=== PATIENT | female | born 1965 | race Caucasian/White ===

== ENCOUNTER 2018-09-09 14:23 | Emergency (ER) | payer MEDICAID ==
[~2018-09-09] VITALS: Ht 182.9 cm; Wt 68.0 kg
[2018-09-09 14:58] VITALS: BP_SYST 136
--- NOTE | 2018-09-09 15:40 | NUR ---
Patient to ER bed 7 to gown for evaluation. Side rails up. Report given to Nia CASH.
--- NOTE | 2018-09-09 15:45 | NUR ---
BRITTNEY Box DEPARTMENT STORE MANAGER at bedside examining patient.
[2018-09-09] MEDS ORDERED: KETOROLAC TROMETHAMINE 60 MG/2 ML VIAL IM ONE (16:00)
--- NOTE | 2018-09-09 16:00 | NUR ---
Patient presented to ER with c/o back pain and bilat arm numbness. Patient A&Ox4, afebrile, ambulatory to ER, pain 10/05, denies N/V/D. Patient states pain to back and bilat arms increased today 10/05, pain had been present intermittent x2 weeks. Patient denies other health ilnesses
--- NOTE | 2018-09-09 16:04 | NUR ---
BRITTNEY Box [employer] UNIT OPERATOR at bedside discussing treatment with patient.
--- NOTE | 2018-09-09 16:26 | NUR ---
Note emmie in EDM - 09/09/18 at 1638 by [email or web address] Patient presented to ER with c/o back pain and bilat arm numbness. Patient A&Ox4, afebrile, ambulatory to ER, pain 10/05, denies N/V/D. Patient states pain to back and bilat arms increased today 10/05, pain had been present intermittent x2 weeks. Patient denies other health ilnesses
--- NOTE | 2018-09-09 16:29 | NUR ---
during discharge instructions Patient request to speak to Morena Box NP. Made Morena Box NP aware.
[2018-09-09 16:30] VITALS: BP_SYST 136
--- NOTE | 2018-09-09 16:30 | NUR ---
Patient given written and verbal discharge instructions and verbalizes understanding. ER MD discussed with patient the results and treatment provided. Patient in stable condition. ID arm band removed. Rx of Tylenol, prednisone given. Patient educated on pain management and to follow up with PMD. Pain Scale5/10 tolerable for pt . Opportunity for questions provided and answered. Medication side effect fact sheet provided.
== END 2018-09-09 16:30 | disposition home or self-care (01) ==
LOC: SED 14:23
DX: S90.562A Insect bite (nonvenomous), left ankle, initial encounter (principal); R03.0 Elevated blood-pressure reading, without diagnosis of hypertension; Z85.41 Personal history of malignant neoplasm of cervix uteri; W57.XXXA Bitten or stung by nonvenomous insect and other nonvenomous arthropods, initial encounter; Y93.89 Activity, other specified; Y92.89 Other specified places as the place of occurrence of the external cause; Y99.8 Other external cause status
CPT/HCPCS: 96372; 99283; J1885

== ENCOUNTER 2018-12-11 18:45 | Emergency (ER) | payer MEDICAID ==
[~2018-12-11] VITALS: Ht 182.9 cm; Wt 70.3 kg
[2018-12-11 18:55] VITALS: BP_SYST 148
[2018-12-11 20:41] LABS: BILIRUBIN,URINE NEGATIVE (NEGATIVE); BLOOD, URINE TRACE (NEGATIVE); CLARITY/URINE CLEAR (CLEAR); COLOR,URINE YELLOW (YELLOW); GLUCOSE,URINE NEGATIVE (NEGATIVE); KETONES,URINE NEGATIVE (NEGATIVE); LEUKOCYTE ESTERASE ,URINE TRACE (NEGATIVE); NITRITE, URINE NEGATIVE (NEGATIVE); PROTEIN URINE NEGATIVE (NEGATIVE); UROBILINOGEN,URINE 0.2 (0.2-1.0)
[2018-12-11 20:49] LABS: BASOPHILS # (AUTO) 0.1 K/uL (0.0-0.2); EOSINOPHILS # (AUTO) 0.1 K/uL (0.0-0.4); EOSINOPHILS % (AUTO) 0.9 % (0.0-4.0); HEMATOCRIT 38.5 % (36-48); HEMOGLOBIN 13.2 g/dL (12.0-16.0); LYMPHOCYTES # (AUTO) 1.9 K/uL (1.0-5.5); LYMPHOCYTES % (AUTO) 27.3 % (20.5-51.5); MEAN CORPUSCULAR HEMOGLOBIN 32 pg (27-31); MEAN CORPUSCULAR HGB CONC 34 % (32-36); MEAN CORPUSCULAR VOLUME 92 fL (79.0-98.0); MONOCYTES # (AUTO) 0.8 K/uL (0.0-1.0); MONOCYTES % (AUTO) 10.7 % (1.7-9.3); NEUTROPHILS # (AUTO) 4.2 K/uL (1.8-7.7); NEUTROPHILS % (AUTO) 60.1 % (40.0-70.0); PLATELET COUNT (AUTO) 353 K/uL (130-430); WHITE BLOOD COUNT (AUTO) 7.1 K/uL (4.8-10.8)
[2018-12-11 20:51] LABS: BACTERIA,URINE MODERATE /HPF (None Seen)
[2018-12-11 21:00] LABS: ANION GAP 8 (5-15); CALCIUM 9.3 mg/dL (8.4-11.0); CHLORIDE 102 mmol/L (98-107); CREATININE 0.66 mg/dL (0.55-1.30); GLUCOSE 91 mg/dL (70-99); POTASSIUM 3.5 mmol/L (3.5-5.1); SODIUM SERUM 138 mmol/L (136-145); UREA NITROGEN, BLOOD 12 mg/dL (8-21)
[2018-12-11 21:02] LABS: GFR AFRICAN AMERICAN 120 mL/min (>90)
[2018-12-11 21:10] LABS: C-REACTIVE PROTEIN QUANT 0.9 mg/dL (0-0.5)
[2018-12-11 21:13] LABS: ALANINE AMINOTRANSFERASE 14 U/L (12-78); ALBUMIN 3.5 g/dL (3.4-4.8); ASPARTATE AMINOTRANSFERASE 11 U/L (10-37); TOTAL BILIRUBIN 0.3 mg/dL (0.0-1.0)
[2018-12-11 21:50] LABS: ERYTHROCYTE SEDIMENTATION RATE 29 MM/HR (0-20)
[2018-12-11] MEDS ORDERED: KETOROLAC TROMETHAMINE 30 MG VIAL IM ONE (23:00)
[2018-12-11] MEDS ORDERED: CEPHALEXIN 500 MG CAPSULE PO ONE (23:00)
[2018-12-11] MEDS ORDERED: AZITHROMYCIN 500 MG in NS 250 ML IV ONE (23:00)
[2018-12-11] MEDS ORDERED: cefTRIAXone 1 GM in D5W 50 ML IV ONE (23:00)
[2018-12-11] MEDS ORDERED: LORazepam 2 MG/ML VIAL IVP ONE (23:00)
[2018-12-11] MEDS ORDERED: KETOROLAC TROMETHAMINE 30 MG VIAL IVP ONE (23:00)
[2018-12-11] MEDS ORDERED: AZITHROMYCIN 500 MG/VIAL (ZITHROMAX) IV ONE (23:24)
[2018-12-11] MEDS ORDERED: cefTRIAXone 1 GM VIAL ONE (23:25)
[2018-12-12 02:00] VITALS: BP_SYST 148
== END 2018-12-12 02:00 | disposition home or self-care (01) ==
LOC: SED 18:45
DX: S16.1XXA Strain of muscle, fascia and tendon at neck level, initial encounter (principal); S39.012A Strain of muscle, fascia and tendon of lower back, initial encounter; J18.9 Pneumonia, unspecified organism; Z85.41 Personal history of malignant neoplasm of cervix uteri; X50.9XXA Other and unspecified overexertion or strenuous movements or postures, initial encounter; Y93.89 Activity, other specified; Y92.89 Other specified places as the place of occurrence of the external cause; Y99.8 Other external cause status
CPT/HCPCS: 36415; 70450; 71045; 80053; 81000; 81025; 82550; 84484; 85025; 85651; 86140; 86710; 87040; 87086; 93005; 96365; 96366; 96375; 99284; J0456; J0696; J1885; J2060

== ENCOUNTER 2019-01-23 15:12 | Emergency (ER) | payer MEDICAID ==
[~2019-01-23] VITALS: Ht 182.9 cm; Wt 68.0 kg
--- NOTE | 2019-01-23 15:12 | NUR ---
Patient to ER bed 07 for evaluation. Side rails up. Report given to Gustavo CASH.
[2019-01-23 15:21] VITALS: BP_SYST 132
--- NOTE | 2019-01-23 15:22 | NUR ---
Patient is awake, alert, and oriented x4. Patient is complaining of generalized body aches and urinary frequency x2 months. Recently worked up last month in the ER for PNA and UTI. Patient never followed up with her PCP.
--- NOTE | 2019-01-23 15:25 | NUR ---
ER Dr. Chatterjee at bedside examining patient.
[2019-01-23] MEDS ORDERED: NACL 0.9% 1,000 ML IV ONE (15:33)
[2019-01-23] MEDS ORDERED: KETOROLAC TROMETHAMINE 30 MG VIAL IVP ONE (15:45)
[2019-01-23 15:47] LABS: BILIRUBIN,URINE NEGATIVE (NEGATIVE); CLARITY/URINE CLEAR (CLEAR); COLOR,URINE YELLOW (YELLOW); GLUCOSE,URINE NEGATIVE (NEGATIVE); KETONES,URINE NEGATIVE (NEGATIVE); LEUKOCYTE ESTERASE ,URINE NEGATIVE (NEGATIVE); NITRITE, URINE NEGATIVE (NEGATIVE); PH,URINE 7.5 (5.0-8.0); PROTEIN URINE NEGATIVE (NEGATIVE); UROBILINOGEN,URINE 0.2 (0.2-1.0)
--- NOTE | 2019-01-23 15:53 | NUR ---
X-ray at bedside.
[2019-01-23 16:00] LABS: BASOPHILS # (AUTO) 0.1 K/uL (0.0-0.2); EOSINOPHILS % (AUTO) 0.6 % (0.0-4.0); HEMOGLOBIN 14.1 g/dL (12.0-16.0); LYMPHOCYTES # (AUTO) 1.6 K/uL (1.0-5.5); LYMPHOCYTES % (AUTO) 23.8 % (20.5-51.5); MEAN CORPUSCULAR HEMOGLOBIN 32 pg (27-31); MEAN CORPUSCULAR HGB CONC 35 % (32-36); MEAN CORPUSCULAR VOLUME 90 fL (79.0-98.0); MONOCYTES # (AUTO) 0.7 K/uL (0.0-1.0); MONOCYTES % (AUTO) 11.1 % (1.7-9.3); NEUTROPHILS # (AUTO) 4.2 K/uL (1.8-7.7); NEUTROPHILS % (AUTO) 63.5 % (40.0-70.0); PLATELET COUNT (AUTO) 532 K/uL (130-430); RED BLOOD CELL COUNT(AUTO) 4.44 MIL/uL (4.2-6.2); RED CELL DISTRIBUTION WIDTH 12.6 % (9.0-15.0); WHITE BLOOD COUNT (AUTO) 6.6 K/uL (4.8-10.8)
[2019-01-23 16:11] LABS: BLOOD, URINE TRACE (NEGATIVE)
[2019-01-23 16:11] LABS: CALCIUM 10.1 mg/dL (8.4-11.0); CREATININE 0.67 mg/dL (0.55-1.30); POTASSIUM 3.9 mmol/L (3.5-5.1)
[2019-01-23 16:16] LABS: BACTERIA,URINE RARE /HPF (None Seen); MUCUS,URINE None Seen /LPF (None Seen); RBC,URINE 0-3 /HPF (0-3); WBC,URINE 0-3 /HPF (0-3)
[2019-01-23 16:18] LABS: ALBUMIN 3.9 g/dL (3.4-4.8); TOTAL BILIRUBIN 0.4 mg/dL (0.0-1.0)
[2019-01-23 16:44] VITALS: BP_SYST 108
--- NOTE | 2019-01-23 16:44 | NUR ---
Patient given written and verbal discharge instructions and verbalizes understanding. ER MD discussed with patient the results and treatment provided. Patient in stable condition. ID arm band removed. IV catheter removed intact and dressing applied, no active bleeding. Rx of ibuprofen, xanax given. Patient educated on pain management and to follow up with PMD. Pain Scale 6/10, MD is aware. Opportunity for questions provided and answered. Medication side effect fact sheet provided.
== END 2019-01-23 16:44 | disposition home or self-care (01) ==
LOC: SED 15:12
DX: M54.5 Low back pain (principal); M54.2 Cervicalgia; M79.601 Pain in right arm; M79.602 Pain in left arm; M79.651 Pain in right thigh; M79.652 Pain in left thigh
CPT/HCPCS: 36415; 71045; 80053; 81000; 81025; 82550; 84484; 85025; 96374; 99284; J1885; J7030